=== PATIENT | male | born 1955 | race Hispanic/Latino ===

== ENCOUNTER 2020-04-02 15:53 | Inpatient (IN) | payer OTHER ==
[~2020-04-02] VITALS: Ht 167.6 cm; Wt 77.8 kg
[2020-04-02] MEDS ORDERED: SUCRALFATE1 GM PO (16:20)
[2020-04-02] MEDS ORDERED: PANTOPRAZOLE SO40 MG PO (16:20)
[2020-04-02] MEDS ORDERED: AMOXICILLIN250 MG PO (16:20)
[2020-04-02] MEDS ORDERED: ASPIRIN 325 MG TAB PO ONE (16:45)
[2020-04-02] MEDS ORDERED: DONNATAL/LIDOCAINE/MAALOX 30 ML SUSP PO ONE (17:30)
[2020-04-02] MEDS ORDERED: FAMOTIDINE 20 MG/2 ML VIAL IV STA (17:40)
[2020-04-02] MEDS ORDERED: BELLADONNA ALK/PHENOBARBITAL 5 ML UDC ONE (17:49)
[2020-04-02] MEDS ORDERED: MAGNESIUM/ALUMINUM/SIMETHICONE 30 ML UDC ONE (17:49)
[2020-04-02] MEDS ORDERED: LIDOCAINE VISC 2% SOLN 15 ML UDC ONE (17:49)
[2020-04-02] MEDS ORDERED: FAMOTIDINE 20 MG/2 ML VIAL IV ONE (17:59)
[2020-04-02] MEDS ORDERED: ONDANSETRON HCL INJ 2MG/ML 2ML 2 MG/ML VIAL IV PRN (18:15)
[2020-04-02] MEDS ORDERED: SODIUM CHLORIDE FLUSH 10 ML SYR INJ PRN (18:15)
[2020-04-02] MEDS ORDERED: NITROGLYCERIN 0.4 MG SUBL SL PRN (18:15)
[2020-04-02] MEDS ORDERED: ASPIRIN 81 MG CHEW TAB PO ONE (18:15)
[2020-04-02] MEDS ORDERED: MORPHINE SULFATE INJ 2 MG/ML SYR IV PRN (18:15)
[2020-04-02 20:18] VITALS: BP 136/91
[2020-04-02 20:21] VITALS: BP 136/91
[2020-04-02] MEDS ORDERED: MELATONIN3 MG PO (20:44)
[2020-04-02 23:41] VITALS: BP 136/91
[2020-04-03] VITALS (7 sets, daily range): BP systolic 119–139; BP diastolic 75–91
[2020-04-03 07:14] LABS: CREATINE KINASE MB 1.8 ng/mL (0-5.0)
[2020-04-03 07:17] LABS: CHOL/HDL RATIO 3.2 (3.9-4.7)
[2020-04-03 08:09] LABS: CREATINE KINASE MB 1.5 ng/mL (0-5.0)
[2020-04-03] MEDS ORDERED: ASPIRIN 81 MG ENTERIC COATED PO SCH (09:00)
[2020-04-03] MEDS ORDERED: SODIUM CHLORIDE 0.9% 1000ML 1,000 ML IV SCH (10:30)
[2020-04-03] MEDS ORDERED: CLOPIDOGREL BISULFATE 75 MG TAB PO ONE (10:45)
[2020-04-03] MEDS ORDERED: LOPRESSOR25 MG PO (10:46)
[2020-04-03] MEDS ORDERED: Atorvastatin PO (10:46)
[2020-04-03] MEDS ORDERED: ASPIRIN EC81 MG PO (10:46)
[2020-04-03] MEDS ORDERED: FAMOTIDINE20 MG PO (11:02)
[2020-04-03] MEDS ORDERED: ACETAMINOPHEN 325 MG TAB PO PRN (12:00)
[2020-04-03] MEDS: FAMOTIDINE 20 MG TAB PO SCH ×2 (12:30→16:35)
[2020-04-03] MEDS: HYDROCODONE/APAP 5MG-325MG TAB PO PRN (12:30)
[2020-04-03 15:20] LABS: CREATINE KINASE MB 1.3 ng/mL (0-5.0)
[2020-04-03] MEDS: METOPROLOL TARTRATE 25 MG TAB PO SCH (16:34)
[2020-04-03] MEDS ORDERED: SODIUM CHLORIDE 0.9% 1000ML 1,000 ML ONE (20:11)
[2020-04-03] MEDS: ATORVASTATIN 40 MG TAB PO SCH (20:14)
[2020-04-04] VITALS (10 sets, daily range): BP systolic 120–159; BP diastolic 78–107
[2020-04-04 05:59] LABS: BASOPHILS # (AUTO) 0.1 (0.0-0.1); BASOPHILS % 0.9 % (0.0-1.0); EOSINOPHILS # (AUTO) 0.2 (0.0-0.4); EOSINOPHILS % 3.4 % (0.0-6.0); HEMOGLOBIN 14.8 g/dL (14.0-18.0); LYMPHOCYTES # (AUTO) 1.3 (1.0-3.2); LYMPHOCYTES % 23.3 % (18.0-39.1); MEAN CORPUSCULAR HEMOGLOBIN 31.3 pg (28-32); MEAN CORPUSCULAR HGB CONC 32.2 g/dL (31-35); MEAN CORPUSCULAR VOLUME 97.3 fL (81-99); MONOCYTES # (AUTO) 0.5 (0.2-0.8); MONOCYTES % 8.7 % (4.4-11.3); NEUTROPHILS # (AUTO) 3.6 (2.1-6.9); NEUTROPHILS % 63.2 % (38.7-80.0); PLATELET COUNT 200 x10e3/uL (140-360); RED BLOOD COUNT 4.73 x10e6/uL (4.3-5.7); RED CELL DISTRIBUTION WIDTH 13.3 % (11.7-14.4)
[2020-04-04] MEDS ORDERED: SODIUM CHLORIDE 0.9% 1000ML 1,000 ML IV SCH (06:00)
[2020-04-04 06:48] LABS: ALANINE AMINOTRANSFERASE 50 IU/L (0-55); ALKALINE PHOSPHATASE 58 IU/L (40-150); ANION GAP 11.4 mmol/L (8-16); BLOOD UREA NITROGEN 21 mg/dL (7-26); BUN/CREATININE RATIO 19 (6-25); CARBON DIOXIDE 34 mmol/L (22-29); CHLORIDE 98 mmol/L (98-107); CREATININE, SERUM 1.09 mg/dL (0.72-1.25); EST GLOMERULAR FILTRATION RATE > 60 ML/MIN (60-); GLUCOSE 150 mg/dL (74-118); POTASSIUM 4.4 mmol/L (3.5-5.1); SODIUM 139 mmol/L (136-145)
[2020-04-04 06:58] LABS: PHOSPHORUS 4.8 MG/DL (2.3-4.7)
[2020-04-04] MEDS: FAMOTIDINE 20 MG TAB PO SCH ×2 (08:51→16:44)
[2020-04-04] MEDS: ASPIRIN 81 MG ENTERIC COATED PO SCH (08:51)
[2020-04-04] MEDS: METOPROLOL TARTRATE 25 MG TAB PO SCH ×2 (08:52→16:44)
[2020-04-04] MEDS ORDERED: LIDOCAINE HCL 2% LOCAL 20 ML VIAL ONE (10:29)
[2020-04-04] MEDS ORDERED: MIDAZOLAM HCL 2 MG/2 ML VIAL ONE (10:29)
[2020-04-04] MEDS ORDERED: FENTANYL CITRATE/PF 100MCG/2 ML INJ ONE (10:29)
[2020-04-04] MEDS ORDERED: IOPAMIDOL 370 MG/ML 200 ML INFUS..BTL INJ ONE (10:30)
[2020-04-04] MEDS ORDERED: HEPARIN SOD/SOD CHLORIDE 2,000 ML ONE (10:30)
[2020-04-04] MEDS ORDERED: SODIUM CHLORIDE 0.9% 1000ML 1,000 ML ONE (10:30)
[2020-04-04] MEDS ORDERED: BIVALRIUDIN 250 MG/VIAL VIAL IV ONE (12:21)
[2020-04-04] MEDS ORDERED: SODIUM CHLORIDE 0.9% 50ML 50 ML ONE (12:22)
[2020-04-04] MEDS ORDERED: CLOPIDOGREL BISULFATE 75 MG TAB ONE (12:43)
[2020-04-04] MEDS ORDERED: ASPIRIN 325 MG TAB ONE (12:43)
[2020-04-04] MEDS: SODIUM CHLORIDE 0.9% 1000ML 1,000 ML IV SCH ×2 (14:00→23:00)
[2020-04-04] MEDS: HYDROCODONE/APAP 5MG-325MG TAB PO PRN (18:09)
[2020-04-04] MEDS: ATORVASTATIN 40 MG TAB PO SCH (20:26)
[2020-04-05] VITALS: BP 131/76
[2020-04-05 04:00] VITALS: BP 149/89
[2020-04-05 05:50] LABS: BASOPHILS # (AUTO) 0.1 (0.0-0.1); BASOPHILS % 0.4 % (0.0-1.0); EOSINOPHILS # (AUTO) 0.2 (0.0-0.4); EOSINOPHILS % 1.9 % (0.0-6.0); HEMATOCRIT 44.2 % (38.2-49.6); HEMOGLOBIN 14.6 g/dL (14.0-18.0); LYMPHOCYTES # (AUTO) 3.9 (1.0-3.2); LYMPHOCYTES % 33.4 % (18.0-39.1); MEAN CORPUSCULAR VOLUME 90.8 fL (81-99); MONOCYTES # (AUTO) 1.1 (0.2-0.8); NEUTROPHILS # (AUTO) 6.4 (2.1-6.9); PLATELET COUNT 248 x10e3/uL (140-360); RED BLOOD COUNT 4.87 x10e6/uL (4.3-5.7); RED CELL DISTRIBUTION WIDTH 13.1 % (11.7-14.4)
[2020-04-05 06:40] LABS: ALBUMIN 3.7 g/dL (3.5-5.0); ALBUMIN/GLOBULIN RATIO 1.1 (0.8-2.0); ANION GAP 9.9 mmol/L (8-16); CALCIUM 9.1 mg/dL (8.4-10.2); CREATININE, SERUM 1.24 mg/dL (0.72-1.25); POTASSIUM 3.9 mmol/L (3.5-5.1)
[2020-04-05 06:57] LABS: MAGNESIUM 1.9 MG/DL (1.3-2.1); PHOSPHORUS 3.3 MG/DL (2.3-4.7)
[2020-04-05 08:00] VITALS: BP 125/81
[2020-04-05 08:23] VITALS: BP 125/81
[2020-04-05] MEDS: FAMOTIDINE 20 MG TAB PO SCH (08:30)
[2020-04-05] MEDS: ASPIRIN 81 MG ENTERIC COATED PO SCH (08:30)
[2020-04-05] MEDS: METOPROLOL TARTRATE 25 MG TAB PO SCH (08:30)
[2020-04-05] MEDS: SODIUM CHLORIDE 0.9% 1000ML 1,000 ML IV SCH (09:00)
[2020-04-05] MEDS ORDERED: CLOPIDOGREL BISULFATE 75 MG TAB PO SCH (09:00)
[2020-04-05 11:48] VITALS: BP 136/88
[2020-04-05] MEDS ORDERED: ONDANSETRON HCL 4 MG ORAL DISINTEGRATING TAB PO PRN (14:00)
== END 2020-04-05 14:38 | disposition home or self-care (01) | DRG 247 ==
LOC: FSED 16:31 → ERHOLD 18:05 → MED/SURG 19:40 → OBSVTOIN 04-04 12:47
PROVIDERS: ADMIT Internal Medicine; ATTEND Internal Medicine
PROC: 027035Z Dilation of Coronary Artery, One Artery with Two Drug-eluting Intraluminal Devices, Percutaneous Approach (ICD-10-PCS; principal; 2020-04-04)
PROC: 4A023N7 Measurement of Cardiac Sampling and Pressure, Left Heart, Percutaneous Approach (ICD-10-PCS; 2020-04-04)
PROC: B2111ZZ Fluoroscopy of Multiple Coronary Arteries using Low Osmolar Contrast (ICD-10-PCS; 2020-04-04)
PROC: B2151ZZ Fluoroscopy of Left Heart using Low Osmolar Contrast (ICD-10-PCS; 2020-04-04)
DX: I25.110 Atherosclerotic heart disease of native coronary artery with unstable angina pectoris (principal); K21.9 Gastro-esophageal reflux disease without esophagitis; Z20.822 Contact with and (suspected) exposure to COVID-19; E78.5 Hyperlipidemia, unspecified; Z82.49 Family history of ischemic heart disease and other diseases of the circulatory system; I10 Essential (primary) hypertension; E11.9 Type 2 diabetes mellitus without complications; E83.39 Other disorders of phosphorus metabolism; Z79.82 Long term (current) use of aspirin
CPT/HCPCS: 36415; 71046; 80053; 80061; 81003; 82550; 82553; 83036; 83735; 83880; 84100; 84443; 84484; 85025; 85379; 87400; 92928; 93005; 93306; 93458; 99152; 99153; 99284; C1725; C1760; C1766; C1769; C1876; C1887; G0378; J0583; J2001; J2250; J2270; J3010; J7030; Q9967; U0002

== ENCOUNTER 2020-10-29 10:26 | Emergency (ER) | payer OTHER ==
[~2020-10-29] VITALS: Ht 170.2 cm; Wt 68.3 kg
[~2020-10-29 10:26] MED LIST: AMOXICILLIN250 MG PO; ASPIRIN EC81 MG PO; Atorvastatin PO; FAMOTIDINE20 MG PO; LOPRESSOR25 MG PO; MELATONIN3 MG PO; PANTOPRAZOLE SO40 MG PO; SUCRALFATE1 GM PO
[2020-10-29] MEDS ORDERED: TYLENOL EXTRA500 MG PO (10:54)
[2020-10-29] MEDS ORDERED: KETOROLAC TROME10 MG (10:54)
[2020-10-29] MEDS ORDERED: CLOPIDOGREL75 MG PO (10:54)
[2020-10-29] MEDS ORDERED: FEROSUL325 MG PO (10:54)
[2020-10-29] MEDS ORDERED: FAMOTIDINE 20 MG/2 ML VIAL IV STA (11:13)
[2020-10-29] MEDS ORDERED: SODIUM CHLORIDE 0.9% 1000ML 1,000 ML IV SCH (11:15)
[2020-10-29] MEDS ORDERED: FAMOTIDINE 20 MG/2 ML VIAL IV ONE (11:37)
[2020-10-29] MEDS ORDERED: SODIUM CHLORIDE 0.9% 1000ML 1,000 ML ONE (11:37)
[2020-10-29] MEDS ORDERED: DIPHENHYDRAMINE HCL INJ 50 MG/ML VIAL IV ONE (12:00)
[2020-10-29] MEDS ORDERED: METOCLOPRAMIDE HCL 10 MG/2ML VIAL IV ONE (12:00)
[2020-10-29] MEDS ORDERED: DEXAMETHASONE SOD PHOS INJ 4 MG/ML VIAL ONE (12:02)
[2020-10-29] MEDS ORDERED: DEXAMETHASONE SOD PHOS INJ 4 MG/ML VIAL IV ONE (12:45)
[2020-10-29] MEDS ORDERED: KETOROLAC TROMETHAMINE 30 MG/ML VIAL IV STA (12:49)
[2020-10-29] MEDS ORDERED: FAMOTIDINE20 MG PO (12:52)
[2020-10-29] MEDS ORDERED: ONDANSETRON ODT4 MG PO (12:53)
[2020-10-29] MEDS ORDERED: FIORICET 50-301 EACH PO (12:54)
== END 2020-10-29 13:18 | disposition home or self-care (01) ==
LOC: FSED 10:52
DX: R07.89 Other chest pain (principal); R51.9 Headache, unspecified; R11.2 Nausea with vomiting, unspecified; B34.9 Viral infection, unspecified; K29.70 Gastritis, unspecified, without bleeding; I25.10 Atherosclerotic heart disease of native coronary artery without angina pectoris; K21.9 Gastro-esophageal reflux disease without esophagitis; Z95.5 Presence of coronary angioplasty implant and graft
CPT/HCPCS: 70450; 80053; 81003; 82553; 84484; 85025; 93005; 96374; 96375; 99284; J1100; J1200; J1885; J2765; J7030